=== PATIENT | male | born 1965 | race Caucasian/White ===

== ENCOUNTER 2024-01-01 03:11 | Emergency (ER) | payer SELFPAY ==
[~2024-01-01] VITALS: Ht 167.6 cm; Wt 99.8 kg
[2024-01-01 03:14] VITALS: BP 152/95; PULSE 84; RESP 18; TEMP 97.6; O2SAT 97
[2024-01-01] MEDS ORDERED: carvediloL 3.125 MG TAB ONE (04:04)
[2024-01-01] MEDS ORDERED: CARV3.12 PO (04:11)
[2024-01-01] MEDS ORDERED: BUME1TAB92 PO (04:11)
[2024-01-01] MEDS: BUMETANIDE 1 MG TAB PO ONE (04:17)
[2024-01-01] MEDS: carvediloL 6.25 MG TAB PO ONE (04:18)
[2024-01-01 04:31] VITALS: BP 136/99; PULSE 95; RESP 23; TEMP 97.6; O2SAT 95
== END 2024-01-01 04:46 | disposition home or self-care (01) ==
LOC: MED 03:11
DX: I11.0 Hypertensive heart disease with heart failure (principal); I50.9 Heart failure, unspecified; Z76.0 Encounter for issue of repeat prescription; Z79.899 Other long term (current) drug therapy
CPT/HCPCS: 99281